=== PATIENT | male | born 1985 | race Caucasian/White ===

== ENCOUNTER → 2024-01-03 | Outpatient (CLI) | payer OTHER | LOC: M PLAIMG 09:23 | PROVIDERS: ATTEND Nurse Practitioner Family | DX: N20.0 Calculus of kidney (principal) ==

== ENCOUNTER → 2025-03-07 | Outpatient (REF) | payer OTHER | LOC: M SMT 13:13 | PROVIDERS: ATTEND Nurse Practitioner Family | DX: N20.0 Calculus of kidney (principal) ==

== ENCOUNTER → 2025-04-09 | Outpatient (REF) | payer OTHER | LOC: M SMT 12:42 | PROVIDERS: ATTEND Nurse Practitioner Family | DX: N20.0 Calculus of kidney (principal) ==